=== PATIENT | female | born 1985 | race Caucasian/White ===

== ENCOUNTER 2017-02-01 12:48 | Emergency (ER) | payer SELFPAY ==
[~2017-02-01 12:48] MED LIST: NAPR500T8 PO; PENI500T PO
[2017-02-01 12:55] VITALS: BP 143/91
[2017-02-01] MEDS ORDERED: ALBU8.5H8 INH (13:18)
[2017-02-01] MEDS ORDERED: AZIT250T PO (13:18)
[2017-02-01] MEDS ORDERED: HYDR-971 PO (13:18)
--- NOTE | 2017-02-01 13:19 | PHYS DOC ---
Past History Past Medical History: No Pertinent History Past Surgical History: No Surgical History Smoking: Cigarettes, Less than 1pk/day Alcohol Use: None Drug Use: None Adult General Chief Complaint Chief Complaint: COUGH HPI HPI Patient is a 31-year-old female presenting to the emergency department for evaluation of cough congestion some shortness of breath. Cough is productive of greenish sputum and is associated with a sharp pain in her chest whenever she coughs. She denies any fevers chills nausea vomiting or other systemic symptoms. She is a daily smoker and is trying to cut back. 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 She is in no obvious distress with normal vital signs. Review of Systems Review of Systems Constitutional: Denies fever or chills [] HENT: + nasal congestion, sore throat [] Respiratory: + cough, shortness of breath [] Cardiovascular: + sharp CP with cough Allergies Allergies Allergies Coded Allergies Type Severity Reaction Last Updated Verified No Known Drug Allergies 08/05/13 No Physical Exam Physical Exam Constitutional: Well developed, well nourished, no acute distress, non-toxic appearance. [] Cardiovascular:Heart rate regular rhythm, no murmur [] Lungs & Thorax: Bilateral breath sounds diminished especially at the bases but no wheezing auscultated. EKG EKG [] Radiology/Procedures Radiology/Procedures [] Course & Med Decision Making Course & Med Decision Making Patient with symptoms consistent with a bronchitis. She looks well with normal vital signs but given this has been going on for approximately one week will go ahead and start on Zithromax provide albuterol and Decadron. She was told to take NSAIDs for the sharp pain in the [place] will help with cough and pain as well. Patient aware and agreeable with plan for discharge and verbalized understanding of the need for short-term follow-up and strict ED return precautions discussed worsening pain shortness of breath or other general concerns. Dragon Disclaimer Dragon Disclaimer This electronic medical record was generated, in whole or in part, using a voice recognition dictation system. Departure Departure: Impression: Primary Impression: Bronchitis Disposition: 01 HOME, SELF-CARE Condition: STABLE Referrals: DUC NAGEL MD (PCP) Patient Instructions: Acute Bronchitis Additional Instructions: TAKE 400MG OF IBUPROFEN EVERY 6 HOURS FOR THE SHARP PAIN AND THE NORCO FOR BREAKTHROUGH PAIN. Scripts Hydrocodone Bit/Acetaminophen (NORCO 5-325 TABLET) 1 Each Tablet 1 TAB PO PRN Q6HRS Y for PAIN, #14 TAB 0 Refills Prov: EFRAIN POON DO 02/01/17 Albuterol Sulfate (PROAIR HFA INHALER) 8.5 Gm Hfa.aer.ad 1 PUFF INH PRN Q6HRS Y for SHORTNESS OF BREATH, #1 INHALER 0 Refills Prov: EFRAIN POON DO 02/01/17 Azithromycin (ZITHROMAX) 250 Mg Tablet 1 PKG PO UD, #6 TAB Prov: EFRAIN POON DO 02/01/17 EFRAIN POON DO Feb 01, 2017 13:19
[2017-02-01] MEDS ORDERED: DEXAMETHASONE SOD PHOS 10 MG/ML VIAL PO ONE (13:45)
== END 2017-02-01 13:24 | disposition home or self-care (01) ==
LOC: ER 12:48
DX: J40 Bronchitis, not specified as acute or chronic (principal); F17.210 Nicotine dependence, cigarettes, uncomplicated
CPT/HCPCS: 99283; J1100

== ENCOUNTER 2018-06-18 10:05 | Emergency (ER) | payer MEDICARE, OTHER ==
[~2018-06-18] VITALS: Ht 175.3 cm; Wt 104.3 kg
[~2018-06-18 10:05] MED LIST changes: +ALBU2.5V8 INH; +AZIT250T PO; +HYDR-3165 PO
[2018-06-18] MEDS ORDERED: IV NORMAL SALINE 1,000ML 1,000 ML IV SCH (10:31)
--- NOTE | 2018-06-18 10:43 | PHYS DOC ---
Past History Past Medical History: No Pertinent History Past Surgical History: Smoking: Cigarettes, Less than 1pk/day Alcohol Use: None Drug Use: None Adult General Chief Complaint Chief Complaint: NAUSEA/VOMITING/DIARRHEA HPI HPI Patient is a 32 year old female who presents with complaining of nausea and vomiting and diarrhea with fever. Patient states she had subjective fever that started 5 days ago and developed 2 episodes of vomiting the next day with 10 episodes of diarrhea every day. Patient complaining of lower abdominal cramping pain and rated her pain 3/10. Patient states the vomiting resolved but diarrhea is not getting better and she developed low back pain since this morning as a constant sharp pain without radiation. She denies urinary symptom and vaginal bleeding and discharge. Review of Systems Review of Systems Constitutional: Denies fever or chills [] Eyes: Denies change in visual acuity, redness, or eye pain [] HENT: Denies nasal congestion or sore throat [] Respiratory: Denies cough or shortness of breath [] Cardiovascular: No additional information not addressed in HPI [] GI: Reports abdominal pain, nausea, vomiting, diarrhea [] : Denies dysuria or hematuria [] Musculoskeletal: Denies back pain or joint pain [] Integument: Denies rash or skin lesions [] Neurologic: Denies headache, focal weakness or sensory changes [] Endocrine: Denies polyuria or polydipsia [] All other systems were reviewed and found to be within normal limits, except as documented in this note. Allergies Allergies Allergies Coded Allergies Type Severity Reaction Last Updated Verified No Known Drug Allergies 08/05/13 No Physical Exam Physical Exam Constitutional: Well developed, well nourished, mild distress, non-toxic appearance. [] HENT: Normocephalic, atraumatic, oropharynx moist. Eyes: PERRLA, EOMI, conjunctiva normal, no discharge. [] Neck: Normal range of motion, no tenderness, supple, no stridor. [] Cardiovascular:Heart rate regular rhythm, no murmur [] Lungs & Thorax: Bilateral breath sounds clear to auscultation [] Abdomen: Bowel sounds normal, soft, no tenderness, no masses, no pulsatile masses. [] Skin: Warm, dry, no erythema, no rash. [] Back: No midline tenderness, no CVA tenderness. [] Extremities: No tenderness, no cyanosis, no clubbing, ROM intact, no edema. [] Neurologic: Alert and oriented X 3, normal motor function, normal sensory function, no focal deficits noted. [] Psychologic: Affect normal, judgement normal, mood normal. [] Current Patient Data Vital Signs Vital Signs Date Time Temp Pulse Resp B/P (MAP) Pulse Ox O2 Delivery O2 Flow Rate FiO2 06/18/18 10:13 97.9 83 16 99 Room Air EKG EKG [] Radiology/Procedures Radiology/Procedures [] Course & Med Decision Making Course & Med Decision Making Pertinent Labs reviewed. (See chart for details) Evaluation of patient in ER showed 32-year-old female patient with episodes of nausea and diarrhea for the last several days and low back pain since this morning. Patient had unremarkable physical exam and labs and felt better with treatment with IV fluid and Toradol in ER. Plan discharge patient home with diagnosis of viral gastroenteritis. Dragon Disclaimer Dragon Disclaimer This electronic medical record was generated, in whole or in part, using a voice recognition dictation system. Departure Departure: Impression: Primary Impression: Viral gastroenteritis Additional Impressions: Myalgia Tobacco abuse Tobacco abuse counseling Disposition: HOME, SELF-CARE (at 1208) Condition: IMPROVED Referrals: DUC NAGEL MD (PCP) Patient Instructions: Myalgia, Adult, Smoking Cessation, Tips For Success, Viral Gastroenteritis Additional Instructions: Drink plenty of liquids Follow-up with your primary care physician in 3-5 days Return to ER if not getting better Scripts Hydrocodone Bit/Acetaminophen (NORCO 5-325 TABLET) 1 Each Tablet 1 TAB PO PRN Q6HRS PRN for PAIN, #10 TAB 0 Refills Prov: MIGUEL JONES MD 06/18/18 Ondansetron Hcl (ZOFRAN) 4 Mg Tablet 1 TAB PO Q6HRS for nausea and vomiting, #12 TAB Prov: MIGUEL JONES MD 06/18/18 Problem Qualifiers MIGUEL JONES MD Jun 18, 2018 10:43
[2018-06-18 10:56] LABS: BASO # 0.1 x10^3/uL (0.0-0.2); BASO % 1 % (0-3); EOS # 0.4 x10^3/uL (0.0-0.7); EOS % 5 % (0-3); HEMOGLOBIN 14.6 g/dL (12.0-15.5); LYMPH # 3.6 x10^3/uL (1.0-4.8); LYMPH % 41 % (24-48); MEAN CORPUSCULAR HEMOGLOBIN 30 pg (25-35); MEAN CORPUSCULAR HGB CONC 34 g/dL (31-37); MEAN CORPUSCULAR VOLUME 88 fL (79-100); MONO # 0.8 x10^3/uL (0.0-1.1); MONO % 9 % (0-9); NEUT % 45 % (31-73); PLATELET COUNT 390 x10^3/uL (140-400); RED CELL DISTRIBUTION WIDTH 13.4 % (11.5-14.5); WHITE BLOOD COUNT 8.9 x10^3/uL (4.0-11.0)
[2018-06-18 11:05] LABS: CLARITY,URINE CLOUDY; COLOR,URINE AMBER
[2018-06-18 11:06] LABS: BACTERIA,URINE 0 /HPF (0-FEW); BILIRUBIN,URINE NEG (NEG); GLUCOSE,URINE NEG (NEG); NITRITE,URINE NEG (NEG); RBC,URINE OCC /HPF (0-2); SQUAMOUS EPITHELIAL CELL,UR FEW /LPF; UROBILINOGEN,URINE 0.2 mg/dL (0.2 mg/dL); WBC,URINE 0 /HPF (0-4)
[2018-06-18 11:07] LABS: AMORPHOUS SEDIMENT,UR PRESENT /HPF
[2018-06-18 11:09] LABS: ALBUMIN 3.6 g/dL (3.4-5.0); CALCIUM 9.2 mg/dL (8.5-10.1); CREATININE 0.7 mg/dL (0.6-1.0); GFR 98.3; TOTAL BILIRUBIN 0.2 mg/dL (0.2-1.0); TOTAL PROTEIN 7.3 g/dL (6.4-8.2)
[2018-06-18 11:10] LABS: POTASSIUM 3.9 mmol/L (3.5-5.1)
[2018-06-18 11:12] LABS: INFLUENZA A PATIENT NEGATIVE (NEGATIVE); INFLUENZA B PATIENT NEGATIVE (NEGATIVE)
[2018-06-18] MEDS ORDERED: KETOROLAC 30 MG/ML VIAL. IV ONE (11:30)
[2018-06-18] MEDS ORDERED: ONDA4TAB7 PO (12:11)
[2018-06-18] MEDS ORDERED: HYDR-3165 PO (12:11)
[2018-06-18 12:15] VITALS: BP 111/71
== END 2018-06-18 12:26 | disposition home or self-care (01) ==
LOC: ER 10:05
DX: A08.4 Viral intestinal infection, unspecified (principal); M79.10 Myalgia, unspecified site; M54.5 Low back pain; F17.210 Nicotine dependence, cigarettes, uncomplicated; R11.2 Nausea with vomiting, unspecified; Z71.6 Tobacco abuse counseling
CPT/HCPCS: 36415; 80053; 81001; 81025; 83690; 85025; 87804; 96361; 96374; 99283; J1885; J7030

== ENCOUNTER 2019-04-11 15:33 | Emergency (ER) | payer MEDICARE, OTHER ==
[~2019-04-11] VITALS: Ht 175.3 cm; Wt 99.8 kg
[~2019-04-11 15:33] MED LIST changes: +ONDA4TAB7 PO
--- NOTE | 2019-04-11 16:09 | PHYS DOC ---
Past History Past Medical History: No Pertinent History Past Surgical History: , Tubal ligation Smoking: Cigarettes, Less than 1pk/day Alcohol Use: None Drug Use: None Adult General Chief Complaint Chief Complaint: DENTAL PROBLEM HPI HPI 33-year-old female presents with dental pain and concern for abscess. The patient has been having dental pain and swelling of the left lower part of her mouth for the last 1 week. She was placed on clindamycin 7 days ago by urgent care. It has not improved at all. The dentist will not remove her broken teeth until the swelling has improved. Patient denies fever or chills. It is very tender to palpation. She has no complaints at this time. Review of Systems Review of Systems Constitutional: Denies fever or chills [] Eyes: Denies change in visual acuity, redness, or eye pain [] HENT: Denies nasal congestion or sore throat. Dental pain [] Respiratory: Denies cough or shortness of breath [] Cardiovascular: No additional information not addressed in HPI [] GI: Denies abdominal pain, nausea, vomiting, bloody stools or diarrhea [] : Denies dysuria or hematuria [] Musculoskeletal: Denies back pain or joint pain [] Integument: Denies rash or skin lesions [] Neurologic: Denies headache, focal weakness or sensory changes [] Endocrine: Denies polyuria or polydipsia [] All other systems were reviewed and found to be within normal limits, except as documented in this note. Allergies Allergies Allergies Coded Allergies Type Severity Reaction Last Updated Verified No Known Drug Allergies 08/05/13 No Physical Exam Physical Exam Constitutional: Well developed, well nourished, no acute distress, non-toxic appearance. [] HENT: Normocephalic, atraumatic, bilateral external ears normal, oropharynx moist. palpable, fluctuant abscess to the left lower gums along teeth #[id number] [] Eyes: PERRLA, EOMI, conjunctiva normal, no discharge. [] Neck: Normal range of motion, no tenderness, supple, no stridor. [] Cardiovascular:Heart rate regular rhythm, no murmur [] Lungs & Thorax: Bilateral breath sounds clear to auscultation [] Abdomen: Bowel sounds normal, soft, no tenderness, no masses, no pulsatile masses. [] Skin: Warm, dry, no erythema, no rash. [] Back: No tenderness, no CVA tenderness. [] Extremities: No tenderness, no cyanosis, no clubbing, ROM intact, no edema. [] Neurologic: Alert and oriented X 3, normal motor function, normal sensory function, no focal deficits noted. [] Psychologic: Affect normal, judgement normal, mood normal. [] Current Patient Data Vital Signs Vital Signs Date Time Temp Pulse Resp B/P (MAP) Pulse Ox O2 Delivery O2 Flow Rate FiO2 04/11/19 15:43 98.1 91 16 96 Room Air EKG EKG [] Radiology/Procedures Radiology/Procedures [] Course & Med Decision Making Course & Med Decision Making Pertinent Labs and Imaging studies reviewed. (See chart for details) The patient had an abscess in the left lower area of her mouth. I performed an incision and drain. See incision and drainage note for more details. I will place the patient on an additional 7 days of clindamycin. She is stable for discharge at this time. [] Dragon Disclaimer Dragon Disclaimer This electronic medical record was generated, in whole or in part, using a voice recognition dictation system. Incision and Drainage Indication: [INDICATION:] Abscess of the left lower gums in the mouth. Procedure: Verbal consent was obtained from the patient to drain her oral abscess. 1% lidocaine mixed with bupivacaine was used for anesthesia. A total of 4 mL was used. The patient had moderate anesthesia from this, but wanted to proceed and get the treat her over with. I made 2 incisions with a #11 blade each 4 mm in length. There appeared to be 2 abscesses next to each other and I was unable to get them to communicate without a second incision. There was purulent material expressed from both sites. The wound culture was obtained. The patient tolerated the procedure well. Complications: 2 incisions Departure Departure: Impression: Primary Impression: Dental abscess Disposition: 01 HOME, SELF-CARE Condition: STABLE Referrals: DUC NAGEL MD (PCP) Patient Instructions: Dental Abscess Scripts Hydrocodone Bit/Acetaminophen (NORCO 5-325 TABLET) 1 Each Tablet 1 TAB PO PRN Q6HRS PRN for PAIN, #14 TAB 0 Refills Prov: SANDEEP FAIRBANKS DO 04/11/19 Clindamycin Hcl (CLINDAMYCIN HCL) 300 Mg Capsule 1 CAP PO QID for dental abscess for 7 Days, #28 CAP Prov: SANDEEP FAIRBANKS DO 04/11/19 SANDEEP FAIRBANKS DO Apr 11, 2019 16:09
[2019-04-11] MEDS ORDERED: LIDOCAINE 2% VISCOUS 15 ML SOLUTION. SWSW ONE (16:15)
[2019-04-11] MEDS ORDERED: LIDOCAINE 1% Multi-Dose 20 ML VIAL. ONE (16:39)
[2019-04-11] MEDS ORDERED: LIDOCAINE 1% Multi-Dose 20 ML VIAL. IJ ONE (16:45)
[2019-04-11] MEDS ORDERED: HYDROcodone/APAP 7.5/325MG 1 TAB TABLET PO ONE (16:45)
[2019-04-11] MEDS ORDERED: CLIN300C8 PO (17:12)
[2019-04-11] MEDS ORDERED: HYDR-3165 PO (17:12)
[2019-04-11 17:21] VITALS: BP 116/85
== END 2019-04-11 17:37 | disposition home or self-care (01) ==
LOC: ER 15:33
DX: K05.319 Chronic periodontitis, localized, unspecified severity (principal); K04.7 Periapical abscess without sinus; F17.210 Nicotine dependence, cigarettes, uncomplicated
CPT/HCPCS: 41800; 87070; 99284